=== PATIENT | female | born 1985 | race Hispanic/Latino ===

== ENCOUNTER → 2017-06-10 13:39 | Outpatient (CLI) | payer BC, SELFPAY ==
[2017-06-10 15:59] LABS: Hematocrit 36.8 % (37-47); Mean Corp Hgb Conc 32.6 g/gl (32-36); Mean Corpuscular Hgb 29.5 pg (27.0-32.0); Mean Corpuscular Volume 90.4 fL (81-99); Mean Platelet Vol. 10.7 fl (6.2-12.0); Platelet Count 241 K/mm3 (150-450); RBC Distribution Width CV 13.1 % (11.6-14.6); RBC Distribution Width SD 43.2 fl (35.1-43.9); Red Blood Count 4.07 M/mm3 (4.2-5.4); White Blood Count 11.9 K/mm3 (4.4-11.0)
[2017-06-10 16:01] LABS: Scan Indicated on CBC? Y/N NO
[2017-06-10 16:10] LABS: Glucose Challenge Gest 1H 50g 114 mg/dL (70-140)
== END ==
PROVIDERS: Visit Provider Obstetrics & Gynecology
DX: Z34.80 Encounter for supervision of other normal pregnancy, unspecified trimester (principal)
CPT/HCPCS: 36415; 82950; 85027

== ENCOUNTER → 2017-08-05 13:00 | Outpatient (CLI) | payer BC, SELFPAY ==
[2017-08-05 15:48] LABS: Group B Strep DNA By PCR Negative (Negative); Internal Control PASS; Probe Check PASS; Specimen Processing Control PASS
== END ==
PROVIDERS: Visit Provider Obstetrics & Gynecology
DX: Z36.85 Encounter for antenatal screening for Streptococcus B (principal)
CPT/HCPCS: 87081; 87653

== ENCOUNTER 2017-08-28 02:30 | Inpatient (IN) | payer BC, SELFPAY ==
[2017-08-28 00:45] VITALS: BMI 29.5
[2017-08-28] MEDS: 0.9% Saline Lock 10 ML Syringe IV (02:53)
[2017-08-28 03:12] LABS: Hematocrit 37.1 % (37-47); Hemoglobin 12.6 g/dl (12.0-15.0); Mean Corpuscular Hgb 29.4 pg (27.0-32.0); Mean Corpuscular Volume 86.5 fL (81-99); Platelet Count 235 K/mm3 (150-450); RBC Distribution Width CV 13.7 % (11.6-14.6); RBC Distribution Width SD 42.3 fl (35.1-43.9); Red Blood Count 4.29 M/mm3 (4.2-5.4); White Blood Count 13.4 K/mm3 (4.4-11.0)
[2017-08-28 03:18] LABS: Scan Indicated on CBC? Y/N NO
--- NOTE | 2017-08-28 09:15 | PCM.PN.BLA ---
Progress Note LABOR PROGRESS NOTE Contractions intensify. Denies feeling pressure. Fetus is active. AVSS GEN - NAD, AAO x 3 SVE 5/70/-3, cephalic TOCO 2/10 min FHR 135, moderate variability, + accelerations, + variable deceleration A/P: 31yo G1 @ 39 6/7wga in latent labor, Cat II FHR, GBS neg -Amniotomy performed with fundal pressure to apply head to cervix with clear fluid -Advised pitocin. Reviewed how works, potential for tachysystole and/or heart rate changes, risks for section due to heart rate changes related to pitocin. Will start - status overall reassuring
[2017-08-28] MEDS: Lactated Ringers 1,000 ML 50 ML IV ×4 (09:27→18:51)
[2017-08-28] MEDS: Oxytocin 30 units/NS 500 ml 30 UNITS/500 ML IV.SOLN IV (09:28)
--- NOTE | 2017-08-28 11:50 | PLAC_PTH ---
PATIENT: OLIVE STALLWORTH LOC: [facility] U#:[id number] AGE/SX: 31/F ROOM: WP008 RE08/28/[address]: Dr. Honey Gallagher MD : 1985 BED: 1 DIS: 08/30/2017 SPEC #: [id number] RECD: 08/29/17 04:52 STATUS: FLORIN REQ #: [id number] SUZIE: 08/28/17 11:[address]: Honey Cooper DEPT: SURGICAL PATHOLOGY RECD BY: Jairo Dueñas ENTERED: 08/31/17 12:04 SP TYPE: PLACENTA OTHR DR: No Primary Care Phys Tissues: Placenta, NOS Procedures: Surgery Specimen Level V HEADER OPERATION: Vaginal delivery PRE-OP DIAGNOSIS: Maternal fever in labor during vaginal labor and delivery TISSUE SUBMITTED: Placenta MICROSCOPIC DIAGNOSIS Placenta: Placental disc - third trimester placenta with a succenturiate lobe(316 gm). - Focal acute vasculitis of subamniotic blood vessels. Membranes ? acute chorioamnionitis. Umbilical cord - three blood vessels and mild acute funisitis. SJ:lisa 09/02/17 MICROSCOPIC DESCRIPTION Slides are reviewed. GROSS DESCRIPTION SPECIMEN: PLACENTA / CLINICAL INFORMATION: A. Weight: 3.225 kg B. Gestational Age: 39 weeks C. Sex: Female PLACENTAL WEIGHT (POST FIXATION): 316 gm PLACENTAL DIMENSIONS: main lobe 15 x 13 x 2.5 cm, succenturiate lobe 6 x 6 x 1.5 cm PLACENTAL SHAPE: Usual ovoid with a succenturiate lobe. PLACENTAL WEIGHT FOR GESTATIONAL AGE: Within 10-99th percentile MEMBRANES - Present A. Insertion: Marginal B. Site of rupture from edge: 6 cm from edge of placental disc C. Color of membrane: Leal-melgar D. Abnormalities: None UMBILICAL CORD - Present A. Color: Leal-melgar B. Insertion: Paracentral C. Length: 33 cm D. Diameter: 1 cm E. Number of vessels: Three F. Abnormalities: A few false knots are noted. A few blood clots are noted and underneath the membranes at the site of insertion of the umbilical cord. PLACENTAL DISC - Present A. Color of surface: Leal-emlgar B. surface abnormalities: None C. Maternal cotyledons: Intact with minimal tears D. Attached retro placental clot: A few blood clots are also noted at the edge of the placenta. E. Cut surface: Dark red and spongy F. Lesions: None G. Separate clot: Absent SECTIONS SUBMITTED: 1. Membrane roll 2. Cord, maternal end 3. Cord, end, succenturiate lobe 4. Placental disc, and maternal surfaces 5. Placental disc, and maternal surfaces, area of submembranous blood clot 6. Placental disc, and maternal surfaces PURA:lisa 09/01/17 TC:2 CPT: 98834
[2017-08-28] MEDS: fentaNYL-bupivacaine (epidural) 100 ML BAG EPIDURAL ×2 (13:02→17:45)
[2017-08-28] MEDS: Acetaminophen 325 MG Tablet PO ×2 (17:44→23:17)
--- NOTE | 2017-08-28 19:42 | PCM.PN.BLA ---
Progress Note LABOR PROGRESS NOTE Precious remains comfortable with epidural and without complaints. Nurse indicates they have just started pushing. Tm 38.0, Tc 37.7 103/59 76 18 GEN - NAD, AAO x 3 FHR 140, moderate variability, + accelerations, + variable decelerations TOCO 4-5/10 min SVE FD/100/+1, BASIL, ISE in situ. No fundal tenderness A/P: 31yo G1 @ 39 6/7wga in labor, maternal fever, now resolved, Cat II FHR -No other evidence of maternal fever. Will start antibiotics if T 100.4 or higher recurs. - status overall reassuring -Continue pushing
--- NOTE | 2017-08-28 20:09 | PCM.PN.BLA ---
Progress Note LABOR PROGRESS NOTE Patient continues pushing now +2 station per RN exam. Tm 101.6, VSS. FHR 145, moderate variability, + accelerations, no decelerations. TOCO 5/ 10 min. Will start antibiotics for maternal fever. No prolonged rupture or other signs, but cannot r/o chorioamnionitis. Discussed with patient and recommendations and plan of care.
[2017-08-28] MEDS: Oxytocin 30 units/NS 500 ml 30 UNITS/500 ML IV.SOLN 334 UNITS IV (22:14)
[2017-08-28] MEDS: Oxytocin 30 units/NS 500 ml 30 UNITS/500 ML IV.SOLN 167 UNITS IV (22:44)
--- NOTE | 2017-08-28 22:49 | PCM.OB.VAG ---
- Problem List (1) 39 weeks gestation of Status: Acute (2) (spontaneous vaginal delivery) Status: Acute Vaginal Delivery Maternal Presentation: - - Latent labor Amniotomy and pitocin augmentation Amniotic Membrane Rupture Type: Artificial Rupture of Membrane time: 08/28/17 0900h Amniotic Fluid Description: Clear Final JALYN: 08/29/17 Final JALYN Source: US <20 weeks Gestational age: 39 Weeks and 6 Days Date of Procedure: 08/28/17 Pre-Operative Diagnosis: 39 6/7wga, labor, maternal fever Post-Operative Diagnosis: 39 6/7wga, labor, maternal fever Surgery/ Procedure Performed: Spontaneous Vaginal Delivery Anesthesiologist: Joslyn Garrido Type of Anesthesia: Epidural Description of Procedure: Patient was FD/+4 on my arrival with FHR Cat I. With continued pushing effort there was terminal deceleration down to the 60s bpm. IV pitocin was discontinued, O2 administered and patient repositioned. She pushed to deliver a female shortly thereafter. A nuchal cord x 1 was reduced at the perineum. The was placed on the maternal abdomen and she was further attended by nursery personnel. The cord was doubly clamped and cut after approximately 10-15 seconds. Cord gases, cord blood and cord blood culture (for study) specimen was obtained. The placenta delivered spontaneously and appeared intact on inspection. IV pitocin was started. Intrauterine exam was performed following an increase in bleeding, however, no hemorrhage was present. Membranes were retrieved with improvement of bleeding. A 1st degree vaginal laceration was repaired using 3-0 Vicryl rapide. Patient tolerated the delivery well. Sponge counts were correct x 2 Presentation: Vertex Placental Delivery Description: Spontaneous Placenta Disposition: [facility] Cord Vessel Description: 3 Vessels Nuchal Cord Compression: With compression Cord Gases drawn per routine: ABG, VBG Cord Entanglement: Around neck x 1, loose Drain: Marquez to straight drain Estimated Blood Loss: 350 ml Infant A gender: Female (1 minute): 8 (5 minute): 9 Episiotomy Description: None Laceration: Midline, Vaginal Extension/lac, 1st degree Medications given after delivery: IV Pitocin Complications: None
--- NOTE | 2017-08-28 22:57 | OP.PCM_ITS ---
- Problem List (1) 39 weeks gestation of Status: Acute (2) (spontaneous vaginal delivery) Status: Acute Vaginal Delivery Maternal Presentation: - - Latent labor Amniotomy and pitocin augmentation Amniotic Membrane Rupture Type: Artificial Rupture of Membrane time: 08/28/17 0900h Amniotic Fluid Description: Clear Final JALYN: 08/29/17 Final JALYN Source: US <20 weeks Gestational age: 39 Weeks and 6 Days Date of Procedure: 08/28/17 Pre-Operative Diagnosis: 39 6/7wga, labor, maternal fever Post-Operative Diagnosis: 39 6/7wga, labor, maternal fever Surgery/ Procedure Performed: Spontaneous Vaginal Delivery Anesthesiologist: Joslyn Garrido Type of Anesthesia: Epidural Description of Procedure: Patient was FD/+4 on my arrival with FHR Cat I. With continued pushing effort there was terminal deceleration down to the 60s bpm. IV pitocin was discontinued , O2 administered and patient repositioned. She pushed to deliver a female shortly thereafter. A nuchal cord x 1 was reduced at the perineum. The infant was placed on the maternal abdomen and she was further attended by nursery personnel. The cord was doubly clamped and cut after approximately 10- 15 seconds. Cord gases, cord blood and cord blood culture (for study) specimen was obtained. The placenta delivered spontaneously and appeared intact on inspection. IV pitocin was started. Intrauterine exam was performed following an increase in bleeding, however, no hemorrhage was present. Membranes were retrieved with improvement of bleeding. A 1st degree vaginal laceration was repaired using 3-0 Vicryl rapide. Patient tolerated the delivery well. Sponge counts were correct x 2 Presentation: Vertex Placental Delivery Description: Spontaneous Placenta Disposition: [facility] Cord Vessel Description: 3 Vessels Nuchal Cord Compression: With compression Cord Gases drawn per routine: ABG, VBG Cord Entanglement: Around neck x 1, loose Drain: Marquez to straight drain Estimated Blood Loss: 350 ml A gender: Female (1 minute): 8 (5 minute): 9 Episiotomy Description: None Laceration: Midline, Vaginal Extension/lac, 1st degree Medications given after delivery: IV Pitocin Complications: None
--- NOTE | 2017-08-28 23:01 | DCINST_ITS ---
Discharge Diet: No Restrictions Discharge Activity: Return to Normal Activity, May Drive, May Shower, May Take a Tub Bath May resume sexual activity in: 6 weeks Lifting Restrictions: 20 lb Call your doctor if your incision/area has: Continuous Slow Oozing Call your doctor if you observe: Fever of 101 or Higher, Inability to urinate, Inability to have a bowel movement, Using more than one pad per hour, Shortness of breath, Chest pain, Calf discomfort, Uncontrolled pain Additional Instructions: If you experience any of the following, contact your healthcare provider. * Bleeding that soaks a pad every hour for 2 hours * Fever 100.4 or higher * Unrelieved incision or abdominal pain * Swelling, redness, discharge or bleeding from your incision or episiotomy site * Your incision begins to separate * Problems urinating (including inability to urinate or burning while urinating) . * Visual changes * Severe headache * Flu-like symptoms * Pain or redness in one of both of your breasts * Pain, warmth, tenderness or swelling in your legs, especially the calf area * Frequent nausea and vomiting * Symptoms of depression or anxiety If you experience any of the following, call 911 or go to the nearest Emergency Room. * Chest pain * Problems breathing * Seizure activity * Partial or complete paralysis of a body part, slurred speech, weakness or drooping of the face, or a sudden inability to walk or hold your balance Allergies/Adverse Reactions: Allergies No Known Allergies Allergy (Verified 08/28/17 00:46) Medications to take at Discharge Docusate Sodium [Colace] 100 mg PO BID PRN PRN #60 cap 08/28/17 Ibuprofen 600 mg PO TID PRN #30 tab 08/28/17 Vits [Prenatabs FA] 1 tablet PO DAILY 08/28/17 The following prescriptions were given: Docusate Sodium [Colace] 100 mg PO BID PRN PRN #60 cap PRN Reason: Constipation Ibuprofen 600 mg PO TID PRN #30 tab PRN Reason: Pain Please Follow Up With: Thom Vasquez MD When: 6 weeks Primary Care Physician: Care Physician,No Primary [Primary Care Provider] -
[2017-08-29] VITALS (7 sets, daily range): BP systolic 85–98; BP diastolic 43–60; PULSE 75–102; RESP 15–16; TEMP 36.5–37.4; O2SAT 97–100
[2017-08-29] MEDS: 0.9% Saline Lock 10 ML Syringe IV ×3 (03:00→15:11)
[2017-08-29 05:51] LABS: Hematocrit 30.3 % (37-47); Hemoglobin 10.2 g/dl (12.0-15.0); Mean Corp Hgb Conc 33.7 g/gl (32-36); Mean Corpuscular Hgb 29.1 pg (27.0-32.0); Mean Corpuscular Volume 86.6 fL (81-99); Mean Platelet Vol. 10.6 fl (6.2-12.0); Platelet Count 178 K/mm3 (150-450); RBC Distribution Width CV 14.3 % (11.6-14.6); RBC Distribution Width SD 44.7 fl (35.1-43.9); White Blood Count 21.5 K/mm3 (4.4-11.0)
[2017-08-29 05:53] LABS: Scan Indicated on CBC? Y/N NO
--- NOTE | 2017-08-29 07:55 | PCM.PN.OB ---
Patient Problems: Active and Suspected Problems 39 weeks gestation of (Acute) (spontaneous vaginal delivery) (Acute) Subjective: No issues overnight. Infant is nursing well. Denies very heavy lochia. She is out of bed. Objective: AVSS - Physical Exam General: Alert, Oriented x3, Cooperative, No apparent distress HEENT: Atraumatic, Normocephalic Lungs: Clear to auscultation, Normal air movement Cardiovascular: Regular rate, Regular Rhythm, Normal S1, Normal S2 Abdomen: Soft, Non Tender, Non-Distended, - - Fundus firm and nontender, moderate lochia (pad approx 50% full after 2 hours) Extremities: No edema, No Calf Tenderness Neurological: Neuro grossly intact Psych/Mental Status: Normal Affect, Appropriate, Alert and oriented to time, place, person, mood and affect Vital Signs Temp Pulse Resp BP 98.2 F 84 16 86/43 L 08/29/17 06:45 08/29/17 06:45 08/29/17 05:15 08/29/17 06:45 Oxygen Delivery Method Room Air Weight: 71 kg Body Mass Index (BMI) 29.5 Intake and Output for Last 24 Hours 08/27/17 08/28/17 08/29/17 23:59 23:59 23:59 Intake Total 3334 / 3334 1692 / 1692 Output Total 600 / 600 1999 Balance 2734 / 2734 -308 / -308 Laboratory Tests Past 24 Hrs 08/29/17 05:30 WBC 21.5 H RBC 3.50 L Hgb 10.2 L Hct 30.3 L MCV 86.6 MCH 29.1 MCHC 33.7 RDW 14.3 RDW Differential 44.7 H Plt Count 178 MPV 10.6 Medical Necessity - Tobacco Use Smoking Status: Never smoker Assessment/Plan Active and Suspected Problems 39 weeks gestation of (Acute) (spontaneous vaginal delivery) (Acute) 31yo PPD#1 s/p doing well. -Rh positive, Rubella immune - -Routine care
[2017-08-29] MEDS: Prenatal Vits Tablet 1 TABLET PO (09:12)
[2017-08-29] MEDS: Ibuprofen 600 MG Tablet PO ×3 (09:17→23:29)
[2017-08-29] MEDS: Acetaminophen 325 MG Tablet PO (11:08)
--- NOTE | 2017-08-30 00:42 | NURSING ---
Patient difficult to teach regarding waking infant up for . It has been over 4 hours since last feeding and this nurse entered room, sleeping in crib. Questioned patient has she attempted to breastfeed infant. Patient stated infant did not want to eat and kept sleeping. Again stressed the importance of not allowing more than 3 hours pass without attempting to feed infant. Language barrier possibly may be an issue will use pc analyst in future. This nurse changed infant, and full assisted infant to latch. Patient appears not motivated with feeding.
[2017-08-30 02:00] VITALS: BP 100/47; PULSE 79; RESP 17; TEMP 36.6
[2017-08-30 06:00] LABS: Absolute Lymphocyte Count 3.11 X10^3/ul (0.83-4.51); Basophil# 0.02 X10^3/uL; Basophil% 0.1 % (0-1); Eosinophil# 0.34 X10^3/uL; Eosinophils% 2.2 % (0-5); Hematocrit 29.2 % (37-47); Hemoglobin 9.6 g/dl (12.0-15.0); Lymphocyte # 3.11 X10^3/ul (4.0); Lymphocyte % 20.3 % (19-41); Mean Corp Hgb Conc 32.9 g/gl (32-36); Mean Corpuscular Hgb 28.9 pg (27.0-32.0); Mean Platelet Vol. 10.2 fl (6.2-12.0); Monocyte# 0.88 X10^3/uL; Monocyte% 5.7 % (0-10); Neutrophil # 10.95 X10^3/uL (2.7-7.7); Neutrophil % 71.5 % (47-70); Platelet Count 167 K/mm3 (150-450); RBC Distribution Width CV 14.5 % (11.6-14.6); RBC Distribution Width SD 46.4 fl (35.1-43.9); Red Blood Count 3.32 M/mm3 (4.2-5.4); White Blood Count 15.3 K/mm3 (4.4-11.0)
[2017-08-30 06:07] LABS: POSITIVE COUNT NO; POSITIVE DIFFERENTIAL NO; POSITIVE MORPHOLOGY NO
[2017-08-30 08:00] VITALS: BP 96/60; PULSE 70; RESP 16; TEMP 36.8; O2SAT 97
[2017-08-30] MEDS: Prenatal Vits Tablet 1 TABLET PO (09:45)
[2017-08-30 15:00] VITALS: BP 108/57; PULSE 78; RESP 18; TEMP 36.9
[2017-08-30] MEDS: Ibuprofen 600 MG Tablet PO (15:42)
[2017-08-30 16:52] VITALS: BP 108/57; PULSE 78; RESP 18; TEMP 36.9
[2017-09-03 13:50] LABS: Pathology Specimen OB SEE PATHOLOGY REPORT
[2017-09-30 11:38] LABS: Pathology Specimen OB SEE PATHOLOGY REPORT
== END 2017-08-30 17:15 | disposition home or self-care (01) | DRG 774 ==
LOC: WPOUT 02:34
PROVIDERS: Admitting Provider Obstetrics & Gynecology; Visit Provider Obstetrics & Gynecology
DX: O75.2 Pyrexia during labor, not elsewhere classified (principal); O71.4 Obstetric high vaginal laceration alone; O76 Abnormality in fetal heart rate and rhythm complicating labor and delivery; O69.81X0 Labor and delivery complicated by cord around neck, without compression, not applicable or unspecified; Z3A.39 39 weeks gestation of pregnancy; Z37.0 Single live birth
CPT/HCPCS: 59025; 59050; 85025; 85027; 86850; 86900; 88307; 99218; J7120; A4216; G0378

== ENCOUNTER → 2018-04-15 16:48 | Outpatient (CLI) | payer BC, SELFPAY ==
[2018-04-20 12:32] LABS: HPV HC, High Risk Negative (Negative)
== END ==
PROVIDERS: Referring Provider Obstetrics & Gynecology; Visit Provider Obstetrics & Gynecology
DX: Z12.4 Encounter for screening for malignant neoplasm of cervix (principal)
CPT/HCPCS: 87624; 88175; G0145

== ENCOUNTER → 2019-01-31 | Outpatient (CLI) | payer BC, SELFPAY ==
[2019-01-31 17:41] LABS: Chlamydia Trachomatis by PCR Negative (Negative); Neisserai gonorrhoeae by PCR Negative (Negative); Probe Check PASS; Sample Adequacy Control PASS; Specimen Processing Control PASS
== END | disposition home or self-care (01) ==
LOC: LABSPEC 14:17
PROVIDERS: Visit Provider Obstetrics & Gynecology
DX: Z34.81 Encounter for supervision of other normal pregnancy, first trimester (principal)
CPT/HCPCS: 87491; 87591

== ENCOUNTER 2019-02-07 19:51 | Emergency (ER) | payer BC, SELFPAY ==
[2019-02-07 19:52] VITALS: BP 122/67; PULSE 71; RESP 16; TEMP 36.2; O2SAT 97; BMI 24.1
[2019-02-07 20:10] VITALS: RESP 16
--- NOTE | 2019-02-07 20:58 | ED.VISSUMM ---
- ER Visit Summary Date of Service: 02/07/19 Chief Complaint: Vaginal bleeding History of Present Illness: The patient is a 33 F presenting with vaginal bleeding in . G2, P1. Patient states this started around 7 AM this morning. She was seen by her ADJUSTMENT SUPERVISOR. Her HCG quant was 8725. She states the bleeding worsened tonight. She has a scheduled repeat quant in 2 days. Blood type 0 positive. She has mild cramping. Denies other complaints. Physical Examination: Vitals are stable. Patient is afebrile. Alert no acute distress. HEENT exam is unremarkable. Neck is supple. Lungs are clear and equal bilaterally. Heart is regular rate and rhythm. Abdomen is soft nontender nondistended. No guarding or rebound Pelvic: Mild amount of blood in vaginal vault, no active bleeding when cleared with cotton tip swab Extremities are unremarkable. Skin is warm and dry. No focal neurologic deficit. Remainder of exam is unremarkable. Emergency Department Course and Treatment: Discussed with Dr. Oconnell, ultrasound performed today showed thickened endometrium, no sign of or ectopic . Patient has scheduled repeat quant in 2 days. Recommended follow-up for this test. Advised to return to the ED for worsening complaints. Disposition: Discharge home Impression: Threatened miscarriage This note was generated with [employer] dictation software. It may contain incorrect words, spelling, and punctuation that were not noted in review of the chart prior to signing ED Disposition - Plan for ED Patient: Instructions: POSSIBLE MISCARRIAGE (Threatened ) Referrals: Esteban Goff MD [Primary Care Provider] - Keisha Oconnell MD [STAFF PHYSICIAN] -
--- NOTE | 2019-02-07 21:21 | ED.DEP ---
ED Disposition - Plan for ED Patient: Instructions: POSSIBLE MISCARRIAGE (Threatened ) Referrals: Esteban Goff MD [Primary Care Provider] - Keisha Oconnell MD [STAFF PHYSICIAN] -
[2019-02-07 21:39] VITALS: RESP 16
== END 2019-02-07 21:39 | disposition home or self-care (01) ==
LOC: ED 20:19
PROVIDERS: Emergency Provider Emergency Medicine; Family Provider Family Medicine; PCP Family Medicine
DX: O20.0 Threatened abortion (principal)
CPT/HCPCS: 99282

== ENCOUNTER → 2019-02-07 | Outpatient (CLI) | payer BC, SELFPAY ==
[2019-02-07 18:06] LABS: hCG Titer Quant., Serum 8725 mIU/mL (1-3)
== END | disposition home or self-care (01) ==
PROVIDERS: Visit Provider Obstetrics & Gynecology
DX: O20.0 Threatened abortion (principal)
CPT/HCPCS: 36415; 84702

== ENCOUNTER → 2019-02-09 | Outpatient (CLI) | payer BC, SELFPAY ==
[2019-02-07 19:52] VITALS: BMI 24.1
[2019-02-09 12:24] LABS: hCG Titer Quant., Serum 1397 mIU/mL (1-3)
== END | disposition home or self-care (01) ==
LOC: LAB.FUTURE 10:21
PROVIDERS: Visit Provider Obstetrics & Gynecology
DX: O20.0 Threatened abortion (principal)
CPT/HCPCS: 36415; 84702

== ENCOUNTER → 2019-02-24 16:30 | Outpatient (CLI) | payer BC, SELFPAY ==
[2019-02-07 19:52] VITALS: BMI 24.1
== END ==
PROVIDERS: Visit Provider Obstetrics & Gynecology
DX: R30.0 Dysuria (principal)
CPT/HCPCS: 87086; 87088

== ENCOUNTER → 2019-05-29 | Outpatient (CLI) | payer BC, SELFPAY ==
[2019-05-29 16:09] LABS: Chlamydia Trachomatis by PCR Negative (Negative); Neisserai gonorrhoeae by PCR Negative (Negative); Probe Check PASS; Sample Adequacy Control PASS; Specimen Processing Control PASS
== END | disposition home or self-care (01) ==
LOC: LABSPEC 13:49
PROVIDERS: Referring Provider Obstetrics & Gynecology; Visit Provider Obstetrics & Gynecology
DX: Z11.3 Encounter for screening for infections with a predominantly sexual mode of transmission (principal)
CPT/HCPCS: 87491; 87591

== ENCOUNTER → 2019-06-26 | Outpatient (CLI) | payer BC, SELFPAY ==
[2019-06-26 15:36] LABS: Absolute Lymphocyte Count 2.27 X10^3/uL (0.83-4.51); Basophil# 0.04 X10^3/uL; Basophil% 0.4 % (0-1); Eosinophils% 1.1 % (0-5); Hematocrit 36.7 % (37-47); Hemoglobin 12.8 g/dL (12.0-15.0); Lymphocyte # 2.27 X10^3/ul (4.0); Lymphocyte % 25.3 % (19-41); Mean Corp Hgb Conc 34.9 g/dL (32-36); Mean Corpuscular Hgb 29.4 pg (27.0-32.0); Mean Corpuscular Volume 84.2 fL (81-99); Mean Platelet Vol. 10.1 fl (6.2-12.0); Monocyte# 0.51 X10^3/uL; Monocyte% 5.7 % (0-10); NRBC Flagged by Analyzer 0 % (0-5); Neutrophil # 6.03 X10^3/uL (2.7-7.7); Neutrophil % 67.2 % (47-70); Platelet Count 243 K/mm3 (150-450); RBC Distribution Width CV 12.1 % (11.6-14.6); RBC Distribution Width SD 36.6 fl (35.1-43.9); Red Blood Count 4.36 M/mm3 (4.2-5.4)
[2019-06-26 16:10] LABS: Color, Urine Yellow (Yellow); Glucose, Dipstick Normal (Normal); Ketone-Dipstick 5 mg/dl (Negative); Leukocyte Esterase-Dipstick Negative /ul (Negative); Nitrite-Dipstick Negative (Negative); Occult Blood-Urine 10 /ul (Negative); Protein-Dipstick Negative (Negative); Specific Gravity, Urine 1.015 (1.002-1.030); Urine Bilirubin Dipstick Negative (Negative); Urine Clarity Sl. Cloudy (Clear); Urine Urobilinogen Normal (Normal)
[2019-06-26 16:35] LABS: Thyroid Stim Hormone (TSH) 0.58 uIU/mL (0.358-3.74)
[2019-06-27 10:52] LABS: HIV - WCH Non-Reactive (Nonreactive); Hepatitis B Surface Antigen Non-Reactive (Nonreactive); Hepatitis C Antibody Non-Reactive (Nonreactive); Rubella IgG > 500.0 IU/mL
[2019-06-30 04:37] LABS: Prenatal RPR NONREACTIVE (NONREACTIVE)
== END | disposition home or self-care (01) ==
LOC: WOBLAB 14:59
PROVIDERS: Visit Provider Obstetrics & Gynecology
DX: Z34.82 Encounter for supervision of other normal pregnancy, second trimester (principal)
CPT/HCPCS: 36415; 81002; 84443; 85025; 86703; 86762; 86803; 87340

== ENCOUNTER → 2019-10-04 | Outpatient (CLI) | payer BC, SELFPAY ==
[2019-10-04 13:54] LABS: Hematocrit 36.5 % (37-47); Hemoglobin 11.9 g/dL (12.0-15.0); Mean Corp Hgb Conc 32.6 g/dL (32-36); Mean Corpuscular Hgb 29.5 pg (27.0-32.0); Mean Corpuscular Volume 90.3 fL (81-99); Mean Platelet Vol. 10.3 fl (6.2-12.0); Platelet Count 245 K/mm3 (150-450); RBC Distribution Width CV 13.2 % (11.6-14.6); RBC Distribution Width SD 43.5 fl (35.1-43.9); Red Blood Count 4.04 M/mm3 (4.2-5.4); White Blood Count 10.2 K/mm3 (4.4-11.0)
[2019-10-04 14:04] LABS: Glucose Challenge Gest 1H 50g 125 mg/dL (70-140)
== END | disposition home or self-care (01) ==
LOC: WOBLAB 11:30
PROVIDERS: Visit Provider Obstetrics & Gynecology
DX: Z34.83 Encounter for supervision of other normal pregnancy, third trimester (principal)
CPT/HCPCS: 36415; 82950; 85027

== ENCOUNTER → 2019-11-30 | Outpatient (CLI) | payer BC, SELFPAY | END | disposition home or self-care (01) | LOC: LABSPEC 13:40 | PROVIDERS: Visit Provider Obstetrics & Gynecology | DX: Z36.85 Encounter for antenatal screening for Streptococcus B (principal) | CPT/HCPCS: 87081 ==

== ENCOUNTER → 2019-12-28 | Outpatient (CLI) | payer BC, SELFPAY | END | disposition home or self-care (01) | LOC: MTDU 17:05 | PROVIDERS: Referring Provider Obstetrics & Gynecology; Visit Provider Obstetrics & Gynecology | DX: O48.1 Prolonged pregnancy (principal); Z3A.00 Weeks of gestation of pregnancy not specified; Z11.59 Encounter for screening for other viral diseases | CPT/HCPCS: 87635; C9803; U0003 ==

== ENCOUNTER 2019-12-31 02:12 | Inpatient (IN) | payer BC, SELFPAY ==
[2019-12-31] VITALS (59 sets, daily range): BP systolic 100–139; BP diastolic 56–82; PULSE 64–105; RESP 16–18; TEMP 36.2–38; O2SAT 98–100; BMI 31.8
[2019-12-31] MEDS: Lactated Ringers 500 ML 999 ML IV (02:30)
[2019-12-31 02:51] LABS: Absolute Lymphocyte Count 2.69 X10^3/uL (0.83-4.51); Absolute Neutrophil Count 4.8 X10^3/uL (2.0-7.7); Basophil# 0.02 X10^3/uL; Basophil% 0.2 % (0-1); Eosinophil# 0.11 X10^3/uL; Eosinophils% 1.3 % (0-5); Hematocrit 37.5 % (37-47); Hemoglobin 12.6 g/dL (12.0-15.0); Lymphocyte # 2.69 X10^3/ul (4.0); Lymphocyte % 32.5 % (19-41); Mean Corp Hgb Conc 33.6 g/dL (32-36); Mean Corpuscular Hgb 29.9 pg (27.0-32.0); Mean Corpuscular Volume 88.9 fL (81-99); Mean Platelet Vol. 11.4 fl (6.2-12.0); Monocyte# 0.65 X10^3/uL; Monocyte% 7.9 % (0-10); NRBC Flagged by Analyzer 0 % (0-5); Neutrophil # 4.77 X10^3/uL (2.7-7.7); Neutrophil % 57.7 % (47-70); Platelet Count 170 K/mm3 (150-450); RBC Distribution Width CV 13.6 % (11.6-14.6); RBC Distribution Width SD 44.2 fl (35.1-43.9); Red Blood Count 4.22 M/mm3 (4.2-5.4); White Blood Count 8.3 K/mm3 (4.4-11.0)
[2019-12-31] MEDS: Lactated Ringers 1,000 ML 50 ML IV (03:01)
[2019-12-31 03:38] LABS: ROM Internal Control Test YES-OK TO RESULT pt. (Internal QC); ROM Patient Test Negative (Negative)
--- NOTE | 2019-12-31 03:42 | PCM.HPOB.BLA ---
History and Physical Date of Admission: 12/31/19 Chief complaint: Leakage of fluid HPI: 34-year-old G3, P1 at 40 weeks and 5 days with JALYN of 12/26/19 x 9-week ultrasound arrives with leakage of fluid, clear. Denies chest pain, shortness of breath, nausea vomiting, headache visual changes, right upper quadrant pain. States good movement. Obstetric history: G1: 39-week 08/29/2019 female G2: SAB 02/05/2019 Past medical history: None Past surgical history: None Allergies: No known drug allergies Medications: vitamin Social history: Denies smoking drinking or drug use Family history: Denies history of DVT/PE Review of systems: Besides above pertinent positives 4 view systems was performed and found to be negative Physical exam: Vital Signs Temp Pulse BP Pulse Ox 12/31/19 03:42 94 136/69 H 12/31/19 03:40 74 100 12/31/19 03:35 73 129/75 H 100 12/31/19 03:30 75 118/73 99 12/31/19 03:25 72 123/71 H 99 12/31/19 03:22 65 136/65 H 12/31/19 03:20 70 132/82 H 100 12/31/19 03:15 76 99 12/31/19 02:19 98.8 F 67 125/76 H General: Normal-appearing no acute distress HEENT: Normocephalic atraumatic no cervical lymphadenopathy Cardiac/respiratory: Normal respiratory effort, no accessory muscles used, non-labored breathing Abdomen: Soft nontender. Gravid. Pelvic: CE: Thick centimeters on nursing check, grossly ruptured Extremities: No peripheral edema normal peripheral pulses Psych: Normal affect normal demeanor nonpressured speech heart tones: 130/moderate variability/positive accelerations/negative decelerations [place]: q4-5 minutes Mom's Labs & Results 12/31/19 12/31/19 12/31/19 02:10 02:30 02:30 WBC 8.3 RBC 4.22 Hgb 12.6 Hct 37.5 MCV 88.9 MCH 29.9 MCHC 33.6 RDW Std Deviation 44.2 H RDW Coeff of Lino 13.6 Plt Count 170 MPV 11.4 Immature Gran % (Auto) 0.400 Neut % (Auto) 57.7 Lymph % (Auto) 32.5 [place] % (Auto) 7.9 Eos % (Auto) 1.3 Baso % (Auto) 0.2 Absolute Neuts (auto) 4.8 Absolute Lymphs (auto) 2.69 Nucleated RBC % 0 Vag Amniotic Fld Detect Negative Blood Type O POSITIVE Antibody Screen NEGATIVE Labs Blood Type: O RH: POSITIVE RPR/VDRL/Syphilis Nonreactive Rubella status Immune HbSAg Negative Date Done: 06/26/19 Chlamydia Negative Gonorrhea Negative HIV/AIDS Non-Reactive Group B Strep: Negative Assessment and plan: 34-year-old G3, P1 at 40 weeks and 5 days with spontaneous rupture membranes. -Admit labor and delivery -CEFM -GBS negative -Routine orders -Anesthesia to see
[2019-12-31] MEDS: fentaNYL-bupivacaine (epidural) 100 ML BAG EPIDURAL (03:55)
--- NOTE | 2019-12-31 07:01 | PCM.PN.OB ---
Subjective: Patient now comfortable with epidural Objective: Cervical exam: /-3 AROM for clear fluid at 06 50 No labor augmentation at this time heart tones 130/moderate variability/positive accelerations/early decelerations [place]: Every 2?3 minutes - Physical Exam Vitals/I&O's: Vital Signs Temp Pulse BP Pulse Ox 98.1 F 77 112/66 99 12/31/19 04:06 12/31/19 05:17 12/31/19 05:17 12/31/19 05:00 Weight: 158 lb Body Mass Index (BMI) 31.8 Intake and Output for Last 24 Hours 12/29/19 12/30/19 12/31/19 23:59 23:59 23:59 Intake Total 500 / 500 Balance 500 / 500 Laboratory Results 12/31/19 02:10: Vag Amniotic Fld Detect Negative 12/31/19 02:30: WBC 8.3, RBC 4.22, Hgb 12.6, Hct 37.5, MCV 88.9, MCH 29.9, MCHC 33.6, RDW Std Deviation 44.2 H, RDW Coeff of Lino 13.6, Plt Count 170, MPV 11.4, Immature Gran % (Auto) 0.400, Neut % (Auto) 57.7, Lymph % (Auto) 32.5, [place] % (Auto) 7.9, Eos % (Auto) 1.3, Baso % (Auto) 0.2, Absolute Neuts (auto) 4.8, Absolute Lymphs (auto) 2.69, Nucleated RBC % 0 12/31/19 02:30: Blood Type O POSITIVE, Antibody Screen NEGATIVE Current Medications Acetaminophen (Tylenol) 325 - 650 mg PO Q4H PRN PRN PRN Reason: Pain Score 1-3/10 Al Hydroxide/Mg Hydroxide (Mylanta Ii) 15 - 30 ml PO Q4H PRN PRN PRN Reason: INDIGESTION Citric Acid/Sodium Citrate (Bicitra) 30 ml PO X1 PRN PRN Reason: Section Ephedrine Sulfate () 10 mg IV Q10M PRN PRN Reason: hypotension Ephedrine Sulfate () 10 mg IM Q30M PRN PRN Reason: hypotension Fentanyl Citrate (Sublimaze (100mcg Ampule)) 25 - 50 mcg IV Q2H PRN PRN PRN Reason: Pain Score 4-10/10 Fentanyl/Bupivacaine/Sodium Chlor () 0 ml EPIDURAL UD BRAINNA; Protocol Lactated Ringer's () 500 mls @ 999 mls/hr IV .Q31M PRN PRN Reason: Epidural Last Infusion: 12/31/19 03:01 Dose: Infused Documented by: Lactated Ringer's () 500 mls @ 999 mls/hr IV .Q31M PRN PRN Reason: Corrective Measures Lactated Ringer's () 1,000 mls @ 50 mls/hr IV .Q20H BRIANNA Last Admin: 12/31/19 03:01 Dose: 50 mls/hr Documented by: Naloxone HCl 4 mg/ Dextrose 504 mls @ 0 mls/hr IV .Q0M PRN; Protocol PRN Reason: To maintain Resp. rate >10 Influenza Virus Vaccine Quadrival (Flucelvax /Fluzone ) 0.5 ml IM .ONCE ONE Stop: 12/31/19 10:01 Nalbuphine HCl (Nubain) 5 mg IV Q3H PRN PRN PRN Reason: ITCHING Naloxone HCl (Narcan) 0.02 mg IV Q1M PRN PRN Reason: RR< 10 AND PT UNRESPONSIVE Ondansetron HCl (Zofran) 4 mg IV Q4H PRN PRN PRN Reason: NAUSEA Prochlorperazine Edisylate (Compazine Iv) 10 mg IV Q6H PRN PRN PRN Reason: NAUSEA Sodium Chloride () 10 - 40 ml IV X1 PRN PRN Reason: SALINE FLUSH Medical Necessity - Tobacco Use Smoking Status: Never smoker Assessment/Plan All Active Problems 39 weeks gestation of (Acute) (spontaneous vaginal delivery) (Acute) Patient comfortable with epidural now status post AROM for clear fluid. We will expectantly manage. Will augment with Pitocin if needed.
[2019-12-31] MEDS: Lactated Ringers 1,000 ML 200 ML IV (07:25)
[2019-12-31] MEDS: Oxytocin 30 units/NS 500 ml 30 UNITS/500 ML IV.SOLN 999 UNITS IV (09:39)
--- NOTE | 2019-12-31 09:51 | PCM.OPRPT ---
Vaginal Delivery Maternal Presentation: Active Labor Amniotic Membrane Rupture Type: Artificial Amniotic Fluid Description: Clear Date of Procedure: 12/31/19 Pre-Operative Diagnosis: Term, labor Post-Operative Diagnosis: Term, labor Surgery/ Procedure Performed: Spontaneous Vaginal Delivery Type of Anesthesia: Epidural Description of Procedure: Spontaneous vaginal delivery of a viable male , vertex position MARY. Head and shoulders delivered with ease. Cord cut and clamped. Baby was handed to mom. Placenta was delivered via cord traction and fundal massage. First-degree laceration noted and repaired in typical fashion. EBL 250 Apgars 8 9. Medications given after delivery: IV Pitocin
--- NOTE | 2019-12-31 09:53 | DCINST_ITS ---
Discharge Diet: No Restrictions Discharge Activity: Return to Normal Activity May resume sexual activity in: 2 weeks Weight Bearing Status: Weight bearing as tolerated Call your doctor if your incision/area has: Sudden Increased Bleeding, Foul Smelling Discharge Call your doctor if you observe: Fever of 101 or Higher, Shortness of breath, Chest pain Additional Instructions: If you experience any of the following, contact your healthcare provider. * Bleeding that soaks a pad every hour for 2 hours * Fever 100.4 or higher * Unrelieved incision or abdominal pain * Swelling, redness, discharge or bleeding from your incision or episiotomy site * Your incision begins to separate * Problems urinating (including inability to urinate or burning while urinating). * Visual changes * Severe headache * Flu-like symptoms * Pain or redness in one of both of your breasts * Pain, warmth, tenderness or swelling in your legs, especially the calf area * Frequent nausea and vomiting * Symptoms of depression or anxiety If you experience any of the following, call 911 or go to the nearest Emergency Room. * Chest pain * Problems breathing * Seizure activity * Partial or complete paralysis of a body part, slurred speech, weakness or drooping of the face, or a sudden inability to walk or hold your balance Allergies/Adverse Reactions: Allergies No Known Allergies Allergy (Verified 12/31/19 02:24) Medications to take at Discharge Vits [Prenatabs FA] 1 tablet PO DAILY 08/28/17 Please Follow Up With: Barrett Beltre MD When: 6 weeks Primary Care Physician: Care Physician,No Primary [Primary Care Provider] - Test Results: Test results from this visit will be discussed in further detail at your follow- up appointment, if applicable.
--- NOTE | 2019-12-31 09:53 | PCM.DCVAG ---
Discharge Diet: No Restrictions Discharge Activity: Return to Normal Activity May resume sexual activity in: 2 weeks Weight Bearing Status: Weight bearing as tolerated Call your doctor if your incision/area has: Sudden Increased Bleeding, Foul Smelling Discharge Call your doctor if you observe: Fever of 101 or Higher, Shortness of breath, Chest pain Additional Instructions: If you experience any of the following, contact your healthcare provider. Bleeding that soaks a pad every hour for 2 hours Fever 100.4 or higher Unrelieved incision or abdominal pain Swelling, redness, discharge or bleeding from your incision or episiotomy site Your incision begins to separate Problems urinating (including inability to urinate or burning while urinating). Visual changes Severe headache Flu-like symptoms Pain or redness in one of both of your breasts Pain, warmth, tenderness or swelling in your legs, especially the calf area Frequent nausea and vomiting Symptoms of depression or anxiety If you experience any of the following, call 911 or go to the nearest Emergency Room. Chest pain Problems breathing Seizure activity Partial or complete paralysis of a body part, slurred speech, weakness or drooping of the face, or a sudden inability to walk or hold your balance Allergies/Adverse Reactions: Allergies No Known Allergies Allergy (Verified 12/31/19 02:24) Medications to take at Discharge Vits [Prenatabs FA] 1 tablet PO DAILY 08/28/17 Please Follow Up With: Barrett Beltre MD When: 6 weeks Primary Care Physician: Care Physician,No Primary [Primary Care Provider] - Test Results: Test results from this visit will be discussed in further detail at your follow-up appointment, if applicable.
[2019-12-31] MEDS: Acetaminophen 500 MG Tablet 1000 MG PO (18:50)
[2020-01-01] VITALS (8 sets, daily range): BP systolic 88–107; BP diastolic 55–71; PULSE 71–75; RESP 16–18; TEMP 36.3–36.8; O2SAT 98
[2020-01-01] MEDS: Ibuprofen 600 MG Tablet PO (05:30)
--- NOTE | 2020-01-01 08:32 | PCM.PN.OB ---
Subjective: Patient with no overnight complaints. Pain well controlled. Denies chest pain, shortness of breath, nausea vomiting. Minimal lochia - Physical Exam Vitals/I&O's: Vital Signs Temp Pulse Resp BP Pulse Ox 98.2 F 71 16 88/55 L 98 01/01/20 07:52 01/01/20 07:52 01/01/20 07:52 01/01/20 07:52 12/31/19 16:01 Oxygen Delivery Method Room Air Weight: 158 lb Body Mass Index (BMI) 31.8 Intake and Output for Last 24 Hours 12/30/19 12/31/19 01/01/20 23:59 23:59 23:59 Intake Total 2691.67 / 2691.67 Output Total 1850 / 1850 Balance 841.67 / 841.67 General: Oriented x3, Cooperative, No apparent distress HEENT: Atraumatic Oral: Moist Mucosa Neck: Supple Abdomen: Soft, Non Tender, Gravid - Fundus firm and below umbilicus Extremities: No edema Psych/Mental Status: Normal Affect, Appropriate, Alert and oriented to time, place, person, mood and affect Current Medications Acetaminophen (Tylenol) 1,000 mg PO Q8H PRN PRN PRN Reason: Pain Score 1-3/10 Last Admin: 12/31/19 18:50 Dose: 1,000 mg Documented by: Bisacodyl (Dulcolax) 10 mg RECTAL UD PRN PRN Reason: If no BM Dibucaine (Dibucaine) 1 applic TOPICAL TID PRN PRN; Protocol PRN Reason: Discomfort Hydrocortisone (Hytone) 1 applic TOPICAL TID PRN PRN; Protocol PRN Reason: Discomfort Ibuprofen (Motrin) 600 mg PO Q6H PRN PRN PRN Reason: Pain Score 1-3/10 Last Admin: 01/01/20 05:30 Dose: 600 mg Documented by: Influenza Virus Vaccine Quadrival (Flucelvax /Fluzone ) 0.5 ml IM .ONCE ONE Stop: 01/01/20 10:01 Ondansetron HCl (Zofran) 4 mg IV Q4H PRN PRN PRN Reason: Nausea Senna/Docusate Sodium (Senokot-S, Barbara-Colace) 1 - 2 tablet PO DAILY PRN PRN PRN Reason: Constipation Simethicone (Mylicon) 80 mg PO PCHS PRN PRN Reason: Indigestion/Stomach pain Sodium Chloride () 5 - 15 ml IV UD PRN PRN Reason: SALINE FLUSH Medical Necessity - Tobacco Use Smoking Status: Never smoker Assessment/Plan All Active Problems 39 weeks gestation of (Acute) (spontaneous vaginal delivery) (Acute) day 1 from spontaneous vaginal delivery. Pain well controlled on Tylenol and ibuprofen. Breast-feeding. Undecided on control. Okay to CO home today
== END 2020-01-01 13:30 | disposition home or self-care (01) | DRG 807 ==
LOC: WPOUT 02:12 → WP 02:12
PROVIDERS: Admitting Provider Obstetrics & Gynecology; Visit Provider Obstetrics & Gynecology
DX: O48.0 Post-term pregnancy (principal); Z37.0 Single live birth; Z3A.40 40 weeks gestation of pregnancy; O76 Abnormality in fetal heart rate and rhythm complicating labor and delivery; O70.0 First degree perineal laceration during delivery
CPT/HCPCS: 59025; 59050; 84112; 85025; 86850; 86900; 86901; 99218; J7120; 90686; G0378

== ENCOUNTER → 2021-11-21 | Outpatient (CLI) | payer BC, SELFPAY ==
[2021-11-24 21:06] LABS: Chlamydia By Nucleic Acid AMP Negative (Negative)
[2021-11-25 08:01] LABS: Gonococcus By Nucleic Acid AMP Negative (Negative)
[2021-11-28 18:05] LABS: HPV Reflexed? NOT INDICATED
== END | disposition home or self-care (01) ==
LOC: LABSPEC 16:46
PROVIDERS: Visit Provider Obstetrics & Gynecology
DX: Z12.4 Encounter for screening for malignant neoplasm of cervix (principal); Z11.3 Encounter for screening for infections with a predominantly sexual mode of transmission
CPT/HCPCS: 87491; 87591; 88175; G0145